=== PATIENT | female | born 1965 | race Caucasian/White ===

== ENCOUNTER 2018-02-27 13:25 | Emergency (ER) | payer SELFPAY ==
[~2018-02-27] VITALS: Ht 175.3 cm; Wt 70.2 kg
[2018-02-27 13:45] VITALS: BP 186/91; PULSE 98; RESP 16; TEMP 99.1
[2018-02-27 14:24] LABS: BILIRUBIN, URINE NEG (NEG); BLOOD, URINE SMALL (NEG); GLUCOSE,URINE NEG (NEG); KETONE, URINE TRACE mg/dL (NEG); NITRITE,URINE NEG (NEG); PH, URINE 5.5 (5.0-8.5); URINE COLOR YELLOW (YELLW/STRAW); URINE LEUKOCYTE ESTERASE NEG (NEG)
[2018-02-27 14:46] LABS: MUCUS URINE MANY /lpf (OCC)
[2018-02-27 14:47] LABS: BACTERIA, URINE RARE /hpf; SQUAMOUS EPITHELIAL CELL URINE >8 /hpf (0-5); WBC, URINE 0-2 /hpf (0-5)
--- NOTE | 2018-02-27 15:04 | PD ---
HPI Chief Complaint: Abdominal Pain Time Seen by Provider: 14:51 Travel History International Travel<30 days: No Contact w/Intl Traveler<30days: No Traveled to known affect area: No History of Present Illness HPI 52yo F with PMH of alcohol abuse here with multiple complaints. Pt has been not feeling well and having intermittent abdominal pain, dark urine, nausea, vomiting and back pain for months. Pt started noticing puffiness under her eyes as well. Pt said she had elevated liver enzymes found in an ER in [place] a few months ago but never followed up. Denies any fever, chest pain, sob, focal weakness or numbness. PFSH Past Medical History Arthritis: Yes Diminished Hearing: No Hypertension: Yes Tetanus Vaccination: Unknown ?: Not Past Surgical History Appendectomy: Yes Cholecystectomy: Yes Hysterectomy: Yes Tonsillectomy: Yes Social History Alcohol Use: Yes (soc) Tobacco Use: Yes (11/16 ppd) Substance Use: No Allergies-Medications (Allergen,Severity, Reaction): Coded Allergies: No Known Allergies (Unverified , 02/27/18) Reported Meds & Prescriptions Reported Meds & Active Scripts Active No Active Prescriptions or Reported Medications Review of Systems Except as stated in HPI: all other systems reviewed are Neg Physical Exam Narrative GENERAL: 52yo F in mild distress. SKIN: Focused skin assessment warm/dry. HEAD: Atraumatic. Normocephalic. EYES: Pupils equal and round. No scleral icterus. +Bilateral inferior periorbital swelling. ENT: No nasal bleeding or discharge. Mucous membranes pink and moist. NECK: Trachea midline. No JVD. CARDIOVASCULAR: Regular rate and rhythm. No murmur appreciated. RESPIRATORY: No accessory muscle use. Clear to auscultation. Breath sounds equal bilaterally. GASTROINTESTINAL: Abdomen soft, mild ttp diffusely, more in epigastric region. No rebound tenderness or guarding. MUSCULOSKELETAL: No obvious deformities. No clubbing. No cyanosis. Trace bilateral lower extremity edema. NEUROLOGICAL: Awake and alert. No obvious cranial nerve deficits. Motor grossly within normal limits. Normal speech. PSYCHIATRIC: Appropriate mood and affect; insight and judgment normal. Data Data Last Documented VS Vital Signs Date Time Temp Pulse Resp B/P (MAP) Pulse Ox O2 Delivery O2 Flow Rate FiO2 02/27/18 18:51 02/27/18 17:07 71 16 98 Room Air 02/27/18 13:45 99.1 Orders Orders Urinalysis - C+S If Indicated (02/27/18 13:42) Ed Urine Pregnancytest Poc (02/27/18 13:42) Basic Metabolic Panel (Bmp) (02/27/18 14:58) Complete Blood Count With Diff (02/27/18 14:58) Lipase (02/27/18 14:58) Prothrombin Time / Inr (Pt) (02/27/18 14:58) Act Partial Throm Time (Ptt) (02/27/18 14:58) Ct Abd/Pel W Iv Contrast(Rout) (02/27/18 14:58) Creatine Kinase (Cpk) (02/27/18 14:58) Hepatic Functional Panel (02/27/18 14:58) Sodium Chlor 0.9% 1000 Ml Inj (Ns 1000 M (02/27/18 16:30) Ketorolac Inj (Toradol Inj) (02/27/18 16:30) Iohexol 350 Inj (Omnipaque 350 Inj) (02/27/18 16:50) Labs Laboratory Tests Test 02/27/18 13:40 02/27/18 15:00 Urine Collection Type CLEAN CATCH Urine Color YELLOW Urine Turbidity CLEAR Urine pH 5.5 Urine Specific [place] GREATER/EQUAL 1.030 Urine Protein NEG mg/dL Urine Glucose (UA) NEG mg/dL Urine Ketones TRACE mg/dL Urine Occult Blood SMALL Urine Nitrite NEG Urine Bilirubin NEG Urine Urobilinogen 0.2 MG/DL Urine Leukocyte Esterase NEG Urine WBC 0-2 /hpf Urine Squamous Epithelial Cells >8 /hpf Urine Bacteria RARE /hpf Urine Mucus MANY /lpf Microscopic Urinalysis Comment CULT NOT INDICATED White Blood Count 7.6 TH/MM3 Red Blood Count 4.45 MIL/MM3 Hemoglobin 15.8 GM/DL Hematocrit 46.5 % Mean Corpuscular Volume 104.7 FL Mean Corpuscular Hemoglobin 35.5 PG Mean Corpuscular Hemoglobin Concent 34.0 % Red Cell Distribution Width 12.9 % Platelet Count 313 TH/MM3 Mean Platelet Volume 8.4 FL Neutrophils (%) (Auto) 65.4 % Lymphocytes (%) (Auto) 28.0 % Monocytes (%) (Auto) 5.1 % Eosinophils (%) (Auto) 0.6 % Basophils (%) (Auto) 0.9 % Neutrophils # (Auto) 5.0 TH/MM3 Lymphocytes # (Auto) 2.1 TH/MM3 Monocytes # (Auto) 0.4 TH/MM3 Eosinophils # (Auto) 0.0 TH/MM3 Basophils # (Auto) 0.1 TH/MM3 CBC Comment DIFF FINAL Differential Comment Prothrombin Time 10.1 SEC Prothromb Time International Ratio 1.0 RATIO Activated Partial Thromboplast Time 29.4 SEC Blood Urea Nitrogen 10 MG/DL Creatinine 0.80 MG/DL Random Glucose 86 MG/DL Total Protein 7.3 GM/DL Albumin 3.7 GM/DL Calcium Level 9.0 MG/DL Alkaline Phosphatase 71 U/L Aspartate Amino Transf (AST/SGOT) 21 U/L Alanine Aminotransferase (ALT/SGPT) 28 U/L Total Bilirubin 0.4 MG/DL Direct Bilirubin 0.1 MG/DL Sodium Level 140 MEQ/L Potassium Level 3.7 MEQ/L Chloride Level 107 MEQ/L Carbon Dioxide Level 25.2 MEQ/L Anion Gap 8 MEQ/L Estimat Glomerular Filtration Rate 76 ML/MIN Indirect Bilirubin 0.3 MG/DL Total Creatine Kinase 102 U/L Lipase 145 U/L [facility] Medical Decision Making Medical Screen Exam Complete: Yes Emergency Medical Condition: Yes Differential Diagnosis Nephrotic syndrome vs. cirrhosis vs. kidney failure vs. hyperbilirubinemia Narrative Course 52yo F here with months of dark urine. Labs reviewed, no leukocytosis. H/H elevated at 15.8/46.5. Pt likely dehydrated. LFTs normal. Bilirubin normal. Lipase normal. Creatinine normal. UA showed no leukocyte. Negative bilirubin. Negative protein. Culture not indicated. CPK normal at 102. CT a/p showed no acute CT findings in abdomen or pelvis. Pt is to follow up with primary care physician for further work up. Return precautions given. Diagnosis Primary Impression: Abdominal pain Qualified Codes: R10.9 - Unspecified abdominal pain Patient Instructions: General Instructions Departure Forms: Tests/Procedures Additional Instructions: Please follow up with [facility] in 2-3 days. Return to the ED if symptoms worsen. Med/Other Pt SpecificInfo: Prescription(s) given Scripts Acetaminophen (Tylenol) 325 Mg Tab 650 MG PO Q6H Y for PAIN SCALE 1 TO 4, #20 TAB 0 Refills Prov: EleanorMaxine 02/27/18 Disposition: 01 DISCHARGE HOME Condition: Stable Maxine Webster DO Feb 27, 2018 15:03
[2018-02-27 15:30] LABS: BASOPHIL # 0.1 TH/MM3 (0-0.2); BASOPHIL % 0.9 % (0.0-2.0); EOSINOPHIL % 0.6 % (0.0-4.0); HEMATOCRIT 46.5 % (35.0-46.0); HEMOGLOBIN 15.8 GM/DL (11.6-15.3); LYMPHOCYTE # 2.1 TH/MM3 (1.0-4.8); MEAN CELL VOLUME 104.7 FL (80.0-100.0); MEAN CORPUSCULAR HEMOGLOBIN 35.5 PG (27.0-34.0); MEAN PLATELET VOLUME 8.4 FL (7.0-11.0); MONO % 5.1 % (0.0-8.0); MONOCYTE # 0.4 TH/MM3 (0-0.9); NEUT % 65.4 % (16.0-70.0); PLATELET COUNT 313 TH/MM3 (150-450); RED BLOOD COUNT 4.45 MIL/MM3 (4.00-5.30); RED CELL DISTRIBUTION WIDTH 12.9 % (11.6-17.2); WHITE BLOOD COUNT 7.6 TH/MM3 (4.0-11.0)
[2018-02-27 15:47] LABS: PROTHROMBIN TIME - PATIENT 10.1 SEC (9.8-11.6)
[2018-02-27 15:54] LABS: ALBUMIN 3.7 GM/DL (3.4-5.0); BICARBONATE 25.2 MEQ/L (21.0-32.0)
[2018-02-27 15:57] LABS: CREATININE 0.8 MG/DL (0.50-1.00); DIRECT BILIRUBIN ADULT 0.1 MG/DL (0.0-0.2)
[2018-02-27 15:59] LABS: INDIRECT BILIRUBIN 0.3 MG/DL (0.0-0.8); TOTAL BILIRUBIN ADULT 0.4 MG/DL (0.2-1.0); TOTAL PROTEIN 7.3 GM/DL (6.4-8.2)
[2018-02-27] MEDS ORDERED: KETOROLAC TROMETHAMINE 30 MG/ML (IVP) VIAL IV PUSH ONE (16:30)
[2018-02-27] MEDS ORDERED: SODIUM CHLOR 0.9% 1000 ML INJ 1,000 ML IV ONE (16:30)
[2018-02-27] MEDS ORDERED: IOHEXOL 350 MG/ML 10 ML VIAL (for RAD DIAG) IVCONTRAST ONE (16:50)
[2018-02-27 17:07] VITALS: BP 147/76; PULSE 71; RESP 16; O2SAT 98
--- NOTE | 2018-02-27 17:09 | RADRPT ---
EXAM DATE/TIME: 02/27/2018 16:44 [place] COMPARISON: No previous studies available for comparison. INDICATIONS : Left to mid abdominal pain with nausea and vomiting for several months. Also dark urine and fluid ret ention in upper extremities and face. IV CONTRAST: 95 cc Omnipaque 350 (iohexol) IV ORAL CONTRAST: No oral contrast ingested. RADIATION DOSE: 8.49 CTDIvol (mGy) MEDICAL HISTORY : Hypertension. SURGICAL HISTORY : Appendectomy. Cholecystectomy.Hysterectomy. ENCOUNTER: Initial ACUITY: 4 - 6 months PAIN SCALE: 4/10 LOCATION: Left abdomen TECHNIQUE: Volumetric scanning of the abdomen and pelvis was performed. Using automated exposure control and ad justment of the mA and/or kV according to patient size, radiation dose was kept as low as reasonably achievable to obtain optimal diagnostic quality images. DICOM format image data is available electro nically for review and comparison. FINDINGS: LOWER LUNGS: The visualized lower lungs are clear. LIVER: Homogeneous density without lesion. There is no dilation of the biliary tree. Gallbladder surgically absent. SPLEEN: Normal size without lesion. PANCREAS: Within normal limits. KIDNEYS: Normal in size and shape. There is no mass, stone or hydronephrosis. ADRENAL GLANDS: Within normal limits. VASCULAR: There is no aortic aneurysm. BOWEL/MESENTERY: The stomach, small bowel, and colon demonstrate no acute abnormality. There is no free intraperitone al air or fluid. ABDOMINAL WALL: Within normal limits. RETROPERITONEUM: There is no lymphadenopathy. BLADDER: No wall thickening or mass. REPRODUCTIVE: Uterus surgically absent. No evidence of pelvic mass or free fluid INGUINAL: There is no lymphadenopathy or hernia. MUSCULOSKELETAL: Within normal limits for patient age. CONCLUSION: No acute CT findings in the abdomen or pelvis Antoni Jean MD on February 27, 2018 at 17:03 Board Certified Radiologist. This report was verified electronically.
[2018-02-27] MEDS ORDERED: TYLE325T PO (18:56)
== END 2018-02-27 19:01 | disposition home or self-care (01) ==
LOC: PHEFT 13:25
DX: R10.9 Unspecified abdominal pain (principal); M54.9 Dorsalgia, unspecified; M19.90 Unspecified osteoarthritis, unspecified site; I10 Essential (primary) hypertension; F17.200 Nicotine dependence, unspecified, uncomplicated
CPT/HCPCS: 74177; 80048; 80076; 81001; 82550; 83690; 85025; 85610; 85730; 96361; 96374; 99284; J1885; J7030; Q9967

== ENCOUNTER 2018-05-13 12:28 | Observation (INO) | END 2018-05-14 12:12 | disposition home or self-care (01) | LOC: PH3 12:28 | PROVIDERS: ADMIT Hospitalist; ATTEND Hospitalist ==